=== PATIENT | male | born 1980 | race Two or more races ===

== ENCOUNTER 2018-06-15 11:58 | Emergency (ER) | payer SELFPAY ==
[~2018-06-15] VITALS: Ht 162.6 cm; Wt 74.4 kg
[2018-06-15] MEDS ORDERED: KETOROLAC TROMETH 60MG/2ML VIAL IM ONE (14:30)
[2018-06-15 14:31] VITALS: BP 169/98
== END 2018-06-15 15:15 | disposition home or self-care (01) ==
LOC: ER 12:04
DX: S33.5XXA Sprain of ligaments of lumbar spine, initial encounter (principal); W11.XXXA Fall on and from ladder, initial encounter; Y93.89 Activity, other specified; Y99.8 Other external cause status; Y92.89 Other specified places as the place of occurrence of the external cause
CPT/HCPCS: 72100; 96372; 99283; J1885